=== PATIENT | male | born 1955 | race African-American/Black ===

== ENCOUNTER 2018-06-14 16:03 | Emergency (ER) | payer BC ==
[2018-06-14 16:45] LABS: Absolute Lymphocytes (CBC) 1.2 K/uL (0.7-4.9); Absolute Monocytes 0.7 K/uL (0.1-1.3); Absolute Neutrophil 3.2 K/uL (1.8-8.0); Basophils % 0.7 % (0-1.3); Eosinophils % 2.9 % (0-4.4); Hematocrit 51.5 % (39.6-49.0); Lymphocytes % 22.6 % (15.3-44.8); MPV 8.5 fL (7.6-11.3); Monocytes % 13.1 % (3.3-12.3); RBC Red Blood Cell Count 5.34 M/uL (4.33-5.43)
[2018-06-14] MEDS ORDERED: NA CHLORIDE 0.9% 1,000 ML ONE (16:53)
[2018-06-14 17:05] LABS: Albumin 3.9 g/dL (3.4-5.0); Bilirubin Direct 0.2 mg/dL (0-0.2); Potassium 4.8 mmol/L (3.5-5.1); Protein, Total 7.8 g/dL (6.4-8.2)
--- NOTE | 2018-06-14 18:10 | RAD REPORT ---
EXAM DESCRIPTION: CT - Abdomen Pelvis W Contrast - 06/14/2018 5:45 pm CLINICAL HISTORY: Abdominal pain COMPARISON: none. TECHNIQUE: Computed axial tomography of the abdomen pelvis was obtained. 100 cc Isovue-300 was admin istered intravenously. Oral contrast was not requested which limits evaluation of bowel. All CT scans are performed using dose optimization technique as appropriate and may include automated exposure control or mA/KV adjustment according to patient size. FINDINGS: The liver, spleen, pancreas, adrenal and kidneys appear unremarkable. There is no evidence of diverticulitis. The appendix is normal Spondylosis involves lumbar spine resulting in spinal stenosis The prostate gland is markedly enlarged. Air is present within the bladder Small umbilical hernia IMPRESSION: Marked prostatic hypertrophy Air within the bladder. If the patient has had recent instrumentation this is normal. If not this may indicate infection.
[2018-06-14 18:21] LABS: Urine Blood NEGATIVE (NEG); Urine Glucose NEGATIVE (NEG); Urine Protein NEGATIVE (NEG); Urine pH 5.5 (5.0-7.0)
--- NOTE | 2018-06-14 18:32 | EDPHYS ---
Physician Documentation [facility] Name: Scot Suazo Jr Age: 63 yrs Sex: Male : 1955 Arrival Date: 06/14/2018 Time: 16:07 Bed 19 Private MD: Oliverio Miller T ED Physician Isaiah Riggs HPI: 06/14 16:34 This 63 yrs old Black Male presents to ER via Ambulatory with complaints of Abdominal pm1 Pain. 16:34 The patient presents with abdominal pain that is diffuse. Onset: The symptoms/episode pm1 began/occurred 4 day(s) ago. The symptoms do not radiate. Associated signs and symptoms: Pertinent positives: constipation, Pertinent negatives: nausea, vomiting, and diarrhea, chest pain, dysuria, fever, shortness of breath. The symptoms are described as crampy. Modifying factors: The symptoms are alleviated by nothing, the symptoms are aggravated by nothing. Severity of pain: in the emergency department the pain is unchanged. The patient has experienced similar episodes in the past, a few times. The patient has been recently seen by a physician: Dr. Steen. Patient has a TURP scheduled next week. Presents with abdominal pain and constipation for the past 4 days. Patient with normal bowel movement this AM. Historical: - Allergies: 16:14 No Known Allergies; la1 - Home Meds: 16:14 lisinopril 20 mg Oral tab 1 tab once daily [Active]; metoprolol tartrate 100 mg Oral la1 tab 1 tab once daily [Active]; montelukast 10 mg oral tab 1 tab once daily [Active]; finasteride 5 mg oral tab 1 tab once daily [Active]; - PMHx: 16:14 Hypertension; la1 - PSHx: 16:14 None; la1 - Immunization history:: Adult Immunizations up to date. - Social history:: Smoking status: Patient/guardian denies using tobacco. - Ebola Screening: : No symptoms or risks identified at this time. ROS: 16:34 Constitutional: Negative for fever, chills, and weight loss, Eyes: Negative for injury, pm1 pain, redness, and discharge, ENT: Negative for injury, pain, and discharge, Neck: Negative for injury, pain, and swelling, Cardiovascular: Negative for chest pain, palpitations, and edema, Respiratory: Negative for shortness of breath, cough, wheezing, and pleuritic chest pain. 16:34 Back: Negative for injury and pain, : Negative for injury, bleeding, discharge, and swelling, MS/Extremity: Negative for injury and deformity, Skin: Negative for injury, rash, and discoloration, Neuro: Negative for headache, weakness, numbness, tingling, and seizure. 16:34 Abdomen/GI: Positive for abdominal pain, constipation, Negative for nausea, vomiting, and diarrhea. Exam: 16:34 Constitutional: This is a well developed, well nourished patient who is awake, alert, pm1 and in no acute distress. Head/Face: Normocephalic, atraumatic. Eyes: Pupils equal round and reactive to light, extra-ocular motions intact. Lids and lashes normal. Conjunctiva and sclera are non-icteric and not injected. Cornea within normal limits. Periorbital areas with no swelling, redness, or edema. ENT: Nares patent. No nasal discharge, no septal abnormalities noted. Tympanic membranes are normal and external auditory canals are clear. Oropharynx with no redness, swelling, or masses, exudates, or evidence of obstruction, uvula midline. Mucous membranes moist. Neck: Trachea midline, no thyromegaly or masses palpated, and no cervical lymphadenopathy. Supple, full range of motion without nuchal rigidity, or vertebral point tenderness. No Meningismus. Chest/axilla: Normal chest wall appearance and motion. Nontender with no deformity. No lesions are appreciated. Cardiovascular: Regular rate and rhythm with a normal S1 and S2. No gallops, murmurs, or rubs. Normal PMI, no JVD. No pulse deficits. Respiratory: Lungs have equal breath sounds bilaterally, clear to auscultation and percussion. No rales, rhonchi or wheezes noted. No increased work of breathing, no retractions or nasal flaring. 16:34 Back: No spinal tenderness. No costovertebral tenderness. Full range of motion. Skin: Warm, dry with normal turgor. Normal color with no rashes, no lesions, and no evidence of cellulitis. MS/ Extremity: Pulses equal, no cyanosis. Neurovascular intact. Full, normal range of motion. 16:34 Abdomen/GI: Inspection: abdomen appears normal, Bowel sounds: normal, Palpation: abdomen is soft and non-tender, in all quadrants, mass, is not appreciated, rebound tenderness, is not appreciated. 16:34 Neuro: Orientation: is normal, Motor: is normal, moves all fours. Vital Signs: 16:14 BP 179 / 79; Pulse 81; Resp 16; Temp 97.3; Pulse Ox 98% on R/A; Weight 93.44 kg; Height la1 6 ft. 1 in. (185.42 cm); Pain 5/10; 17:28 BP 178 / 86; Pulse 50; Resp 18; Pulse Ox 99% on R/A; em 18:40 BP 164 / 71; Pulse 54; Resp 18; Pulse Ox 99% on R/A; Pain 5/10; em 16:14 Body Mass Index 27.18 (93.44 kg, 185.42 cm) la1 MDM: 16:16 Patient medically screened. pm1 18:30 Data reviewed: vital signs. Data interpreted: Pulse oximetry: on room air is 99 %. pm1 Interpretation: normal. Counseling: I had a detailed discussion with the patient and/or guardian regarding: the historical points, exam findings, and any diagnostic results supporting the discharge/admit diagnosis, lab results, radiology results, the need for outpatient follow up, to return to the emergency department if symptoms worsen or persist or if there are any questions or concerns that arise at home. 06/14 16:22 Order name: Basic Metabolic Panel; Complete Time: 17:10 pm06/14 16:22 Order name: CBC with Diff; Complete Time: 16:52 pm06/14 16:22 Order name: Creatinine for Radiology; Complete Time: 17:04 pm06/14 16:22 Order name: Hepatic Function; Complete Time: 17:10 pm06/14 16:22 Order name: Lipase; Complete Time: 17:10 pm06/14 18:06 Order name: Urine Dipstick--Ancillary (enter results); Complete Time: 18:30 06/14 16:22 Order name: IV Saline Lock; Complete Time: 16:47 pm06/14 16:22 Order name: Labs collected and sent; Complete Time: 16:47 pm06/14 16:22 Order name: Urine Dipstick-Ancillary (obtain specimen); Complete Time: 18:15 pm1 04/27 16:22 Order name: CT Abd/Pelvis - W/Contrast; Complete Time: 18:14 pm1 Administered Medications: 16:46 Drug: NS 0.9% 1000 ml Route: IV; Rate: 1000 ml; Site: right antecubital; em 18:15 Follow up: IV Status: Completed infusion; IV Intake: 1000ml em Disposition: 18:51 Co-signature as Attending Physician, Isaiah Riggs MD. rn Disposition: 06/14/18 18:31 Discharged to Home. Impression: Unspecified abdominal pain, Constipation. - Condition is Stable. - Discharge Instructions: Abdominal Pain, Adult, Constipation, Adult. - Prescriptions for Miralax 17 gram/dose Oral - take 1 packet by ORAL route once daily As needed dilute powder in 8 ounces of water or juice; 7 packet. - Medication Reconciliation Form, Thank You Letter, Antibiotic Education, Prescription Opioid Use form. - Follow up: Emergency Department; When: As needed; Reason: Worsening of condition. Follow up: Private Physician; When: 2 - 3 days; Reason: Recheck today's complaints, Continuance of care, Re-evaluation by your physician. - Problem is new. - Symptoms have improved. Signatures: Dispatcher [employer] EDMS Amrit Almeida, SOA ENGINEER SOA ENGINEER em sIaiah Riggs MD MD rn Attema, Lee, RN RN la1 Jesus Albright NP INFORMATICS ANALYST pm1 Corrections: (The following items were deleted from the chart) 18:46 18:31 06/14/2018 18:31 Discharged to Home. Impression: Unspecified abdominal pain; em Constipation. Condition is Stable. Forms are Medication Reconciliation Form, Thank You Letter, Antibiotic Education, Prescription Opioid Use. Follow up: Emergency Department; When: As needed; Reason: Worsening of condition. Follow up: Private Physician; When: 2 - 3 days; Reason: Recheck today's complaints, Continuance of care, Re-evaluation by your physician. Problem is new. Symptoms have improved. pm1
--- NOTE | 2018-06-14 18:32 | ER ---
Nurse's Notes [facility] Name: Scot Suazo Jr Age: 63 yrs Sex: Male : 1955 Arrival Date: 06/14/2018 Time: 16:07 Bed 19 Private MD: Oliverio Miller T Diagnosis: Unspecified abdominal pain;Constipation Presentation: 06/14 16:11 Presenting complaint: Patient states: Generalized abd pain for the last 4-5 days, la1 constipation with small formed stools. Transition of care: patient was not received from another setting of care. Onset of symptoms was June 14, 2018. Risk Assessment: Do you want to hurt yourself or someone else? Patient reports no desire to harm self or others. Initial Sepsis Screen: Does the patient meet any 2 criteria? No. Patient's initial sepsis screen is negative. Does the patient have a suspected source of infection? No. Patient's initial sepsis screen is negative. Care prior to arrival: None. 16:11 Method Of Arrival: Ambulatory la1 16:11 Acuity: ERYN 3 la1 Historical: - Allergies: 16:14 No Known Allergies; la1 - Home Meds: 16:14 lisinopril 20 mg Oral tab 1 tab once daily [Active]; metoprolol tartrate 100 mg Oral la1 tab 1 tab once daily [Active]; montelukast 10 mg oral tab 1 tab once daily [Active]; finasteride 5 mg oral tab 1 tab once daily [Active]; - PMHx: 16:14 Hypertension; la1 - PSHx: 16:14 None; la1 - Immunization history:: Adult Immunizations up to date. - Social history:: Smoking status: Patient/guardian denies using tobacco. - Ebola Screening: : No symptoms or risks identified at this time. Screenin:24 Abuse screen: Denies threats or abuse. Nutritional screening: No deficits noted. em Tuberculosis screening: No symptoms or risk factors identified. Fall Risk None identified. Assessment: 16:25 General: Appears in no apparent distress. comfortable, Behavior is calm, cooperative. em Pain: Complains of pain in abdomen Pain currently is 5 out of 10 on a pain scale. Neuro: Level of Consciousness is awake, alert, obeys commands, Oriented to person, place, time, situation. Cardiovascular: Capillary refill < 3 seconds Patient's skin is warm and dry. Respiratory: Airway is patent Respiratory effort is even, unlabored, Respiratory pattern is regular, symmetrical. GI: Abdomen is flat, Bowel sounds present X 4 quads. Abd is soft X 4 quads Abdomen is tender to palpation in right lower quadrant and left lower quadrant Patient currently denies nausea, vomiting. Derm: Skin is intact, is healthy with good turgor, Skin is pink, warm \T\ dry. Musculoskeletal: Capillary refill < 3 seconds, Range of motion: intact in all extremities. 17:27 Reassessment: Patient appears in no apparent distress at this time. Patient and/or em family updated on plan of care and expected duration. Pain level reassessed. Patient is alert, oriented x 3, equal unlabored respirations, skin warm/dry/pink. 18:40 Reassessment: Patient appears in no apparent distress at this time. Patient and/or em family updated on plan of care and expected duration. Pain level reassessed. Patient is alert, oriented x 3, equal unlabored respirations, skin warm/dry/pink. Vital Signs: 16:14 BP 179 / 79; Pulse 81; Resp 16; Temp 97.3; Pulse Ox 98% on R/A; Weight 93.44 kg; Height la1 6 ft. 1 in. (185.42 cm); Pain 5/10; 17:28 BP 178 / 86; Pulse 50; Resp 18; Pulse Ox 99% on R/A; em 18:40 BP 164 / 71; Pulse 54; Resp 18; Pulse Ox 99% on R/A; Pain 5/10; em 16:14 Body Mass Index 27.18 (93.44 kg, 185.42 cm) la1 ED Course: 16:07 Patient arrived in ED. as 16:08 Oliverio Miller MD is Private Physician. as 16:12 Triage completed. la1 16:14 Arm band placed on left wrist. la1 16:16 Jesus Albright NP is PHCP. pm1 16:16 Isaiah Riggs MD is Attending Physician. pm1 16:24 Patient has correct armband on for positive identification. Bed in low position. Call em light in reach. Side rails up X2. Adult w/ patient. Pulse ox on. NIBP on. 16:25 Amrit Almeida LVN is Primary Nurse. em 16:30 Initial lab(s) drawn, by me, sent to lab. Inserted saline lock: 22 gauge in right em antecubital area, using aseptic technique. Blood collected. 17:42 CT completed. Patient tolerated procedure well. Patient moved back from CT. bq 17:45 CT Abd/Pelvis - W/Contrast In Process Unspecified. EDMS 18:45 No provider procedures requiring assistance completed. IV discontinued, intact, em bleeding controlled, No redness/swelling at site. Pressure dressing applied. Administered Medications: 16:46 Drug: NS 0.9% 1000 ml Route: IV; Rate: 1000 ml; Site: right antecubital; em 18:15 Follow up: IV Status: Completed infusion; IV Intake: 1000ml em Intake: 18:15 IV: 1000ml; Total: 1000ml. em Outcome: 18:31 Discharge ordered by MD. pm1 18:45 Discharged to home ambulatory, with family. em 18:45 Condition: good 18:45 Discharge instructions given to patient, family, Instructed on discharge instructions, follow up and referral plans. medication usage, Demonstrated understanding of instructions, follow-up care, medications, Prescriptions given X 1. 18:46 Patient left the ED. em Signatures: Dispatcher [employer] EDMS Lyly Peraza bq Amrit Almeida, EXHAUSTER ENGINEER EXHAUSTER ENGINEER Nathalie Tsai Lee, RN RN la1 Jesus Albright, TAMMI FUR CUTTER pm1
== END 2018-06-14 18:46 | disposition home or self-care (01) ==
LOC: ER 16:03
DX: K59.00 Constipation, unspecified (principal); I10 Essential (primary) hypertension
CPT/HCPCS: 36415; 74177; 80048; 80076; 81003; 83690; 85025; 96360; 99284; J7030; Q9967

== ENCOUNTER 2020-10-26 13:33 | Emergency (ER) | payer BC ==
[2020-10-26 14:27] LABS: Absolute Lymphocytes (CBC) 0.9 K/uL (0.7-4.9); Basophils % 1.5 % (0-1.3); Hematocrit 48.1 % (39.6-49.0); Lymphocytes % 28.3 % (15.3-44.8); MPV 9.7 fL (7.6-11.3); RBC Red Blood Cell Count 4.98 M/uL (4.33-5.43)
[2020-10-26 14:35] LABS: Protime INR 1.12
[2020-10-26 14:50] LABS: Albumin 3.6 g/dL (3.4-5.0); Bilirubin Direct 0.3 mg/dL (0-0.2); Bilirubin Total 1.5 mg/dL (0.2-1.0); Magnesium 1.7 mg/dL (1.8-2.4); Potassium 3.8 mmol/L (3.5-5.1); Troponin (Emerg Dept Use Only) 0.02 ng/mL (0.0-0.045)
[2020-10-26 14:56] LABS: Blood Morphology Comment NOT SEEN (NOT SEEN); Platelet Estimate ADEQ; White Blood Cell Scan OK (OK)
--- NOTE | 2020-10-26 15:20 | ER ---
Nurse's Notes [facility] Name: Scot Suazo Jr Age: 65 yrs Sex: Male : 1955 Arrival Date: 10/26/2020 Time: 13:42 Bed 16 Private MD: Diagnosis: Hypertensive urgency Presentation: 10/26 14:04 Chief complaint: Patient states: Elevated Blood pressure x1 day. Recently saw Dr. Miller ld1 and was taken off Protonix and HCTZ because of "kidney issues". Coronavirus screen: Vaccine status: Patient reports receiving the 2nd dose of the covid vaccine. Date September 2020 10-20 Media Patient reports receiving the 1st dose of the Covid vaccine. Date August 2020 10-20 Media Client denies travel out of the [place] in the last 14 days. At this time, the client does not indicate any symptoms associated with coronavirus-19. Ebola Screen: Patient negative for fever greater than or equal to 101.5 degrees Fahrenheit, and additional compatible Ebola Virus Disease symptoms Patient denies exposure to infectious person. Patient denies travel to an Ebola-affected area in the 21 days before illness onset. Initial Sepsis Screen: Does the patient meet any 2 criteria? No. Patient's initial sepsis screen is negative. Does the patient have a suspected source of infection? No. Patient's initial sepsis screen is negative. Risk Assessment: Do you want to hurt yourself or someone else? Patient reports no desire to harm self or others. Onset of symptoms was September 25, 2020. 14:04 Method Of Arrival: EMS: [facility] ld1 14:04 Acuity: ERYN 3 ld1 Triage Assessment: 14:15 General: Appears in no apparent distress. Behavior is calm, cooperative, appropriate ld1 for age, quiet. Pain: Complains of pain in Head Pain currently is 4 out of 10 on a pain scale. Quality of pain is described as aching. Historical: - Allergies: 14:12 No Known Allergies; ld1 - Home Meds: 14:12 lisinopril 20 mg Oral tab 1 tab once daily [Active]; metoprolol tartrate 100 mg Oral ld1 tab 1 tab once daily [Active]; prazosin Oral [Active]; famotidine Oral [Active]; - PMHx: 14:12 Hypertension; ld1 - PSHx: 14:12 None; ld1 - Immunization history:: Adult Immunizations up to date, Client reports receiving the 2nd dose of the Covid vaccine, Date received: September 2020 10-20 Media Client reports receiving the 1st dose of the Covid vaccine, August 2020 10-20 Media. - Social history:: Smoking status: Patient/guardian denies using tobacco, but has a distant history of tobacco abuse. Screenin:15 Abuse screen: Denies threats or abuse. Denies injuries from another. Nutritional ld1 screening: No deficits noted. Tuberculosis screening: No symptoms or risk factors identified. Fall Risk None identified. Assessment: 15:34 Reassessment: See triage assessment. kg Vital Signs: 14:04 BP 183 / 99; Pulse 50; Resp 14; Temp 96.9(TE); Pulse Ox 98% on R/A; Weight 86.18 kg ld1 (R); Height 6 ft. 0 in. (182.88 cm); Pain 4/10; 14:15 BP 181 / 90; Pulse 50; Resp 18; Pulse Ox 100% ; kg 14:30 BP 172 / 89; Pulse 49; Resp 20; Pulse Ox 100% ; kg 14:45 BP 185 / 93; Pulse 48; Resp 17; Pulse Ox 98% ; kg 15:00 BP 170 / 88; Pulse 46; Resp 16; Pulse Ox 100% ; kg 15:30 BP 186 / 92; Pulse 48; Resp 20; Pulse Ox 100% ; kg 14:04 Body Mass Index 25.77 (86.18 kg, 182.88 cm) ld1 ED Course: 13:42 Patient arrived in ED. bd 13:53 Emeka Viveros MD is Attending Physician. sp3 14:01 Adriana English, NITZA is Primary Nurse. kg 14:12 Triage completed. ld1 14:15 No apparent distress. ld1 14:15 Patient has correct armband on for positive identification. Placed in gown. Bed in low ld1 position. Call light in reach. Side rails up X2. 14:15 No provider procedures requiring assistance completed. Inserted saline lock: 20 gauge ld1 in left antecubital area, using aseptic technique. 15:32 XRAY Chest (1 view) In Process Unspecified. EDMS 15:35 IV discontinued, intact, bleeding controlled, No redness/swelling at site. Pressure kg dressing applied. Administered Medications: No medications were administered Outcome: 15:19 Discharge ordered by sp3 15:35 Discharged to home ambulatory. kg 15:35 Discharged to home ambulatory. 15:35 Discharged to home ambulatory. 15:35 Condition: stable 15:35 Discharge instructions given to patient, significant other, Instructed on discharge instructions, follow up and referral plans. Demonstrated understanding of instructions, follow-up care. 15:37 Patient left the ED. kg Signatures: Dispatcher [employer] EDMS Santa Armando Lauren, RN RN ld1 Adriana English RN RN kg Emeka Viveros MD MD sp3 Corrections: (The following items were deleted from the chart) 15:34 14:00 BP 181 / 90; Pulse 50bpm; Resp 18bpm; Pulse Ox 100%; kg kg
--- NOTE | 2020-10-26 15:20 | EDPHYS ---
Physician Documentation [facility] Name: Scot Suazo Jr Age: 65 yrs Sex: Male : 1955 Arrival Date: 10/26/2020 Time: 13:42 Bed 16 Private MD: ED Physician Emeka Viveros HPI: 10/26 15:12 This 65 yrs old Black Male presents to ER via EMS with complaints of High Blood sp3 Pressure. 15:12 65-year-old male with history of hypertension presents with elevated blood pressure and sp3 mild lightheadedness which is now resolved. Patient since getting the second COVID-19 vaccine has had mild renal insufficiency for which his physician was changing his blood pressure regimen. It on prior to arrival it was 210 systolic. Her blood pressures been between 170 and 180 systolic over 90. Patient states that his lightheadedness symptoms have since resolved he denies headache, neck pain, chest pain, shortness of breath, fever, nausea, vomiting, diarrhea, abdominal pain, syncope, or any other symptoms at this time.. Historical: - Allergies: 14:12 No Known Allergies; ld1 - Home Meds: 14:12 lisinopril 20 mg Oral tab 1 tab once daily [Active]; metoprolol tartrate 100 mg Oral ld1 tab 1 tab once daily [Active]; prazosin Oral [Active]; famotidine Oral [Active]; - PMHx: 14:12 Hypertension; ld1 - PSHx: 14:12 None; ld1 - Immunization history:: Adult Immunizations up to date, Client reports receiving the 2nd dose of the Covid vaccine, Date received: September 2020 [employer] Client reports receiving the 1st dose of the Covid vaccine, August 2020 [employer]. - Social history:: Smoking status: Patient/guardian denies using tobacco, but has a distant history of tobacco abuse. ROS: 15:14 Constitutional: Negative for fever, chills, and weight loss, Eyes: Negative for injury, sp3 pain, redness, and discharge, Neck: Negative for injury, pain, and swelling, Cardiovascular: Negative for chest pain, palpitations, and edema, Respiratory: Negative for shortness of breath, cough, wheezing, and pleuritic chest pain, Abdomen/GI: Negative for abdominal pain, nausea, vomiting, diarrhea, and constipation, Back: Negative for injury and pain, MS/Extremity: Negative for injury and deformity, Skin: Negative for injury, rash, and discoloration, Allergy/Immunology: Negative for hives, rash, and allergies, Endocrine: Negative for neck swelling, polydipsia, polyuria, polyphagia, and marked weight changes. 15:14 Neuro: Positive for Patient had mild lightheadedness which is subsequently resolved., Negative for altered mental status, headache, hearing loss, seizure activity, speech changes, syncope, visual changes, weakness, acute changes. 15:15 All other systems are negative. sp3 Exam: 15:15 Constitutional: This is a well developed, well nourished patient who is awake, alert, sp3 and in no acute distress. Head/Face: Normocephalic, atraumatic. ENT: Nares patent. No nasal discharge, no septal abnormalities noted. External auditory canals are clear. Oropharynx with no redness, swelling, or masses, exudates, or evidence of obstruction, uvula midline. Mucous membranes moist. Neck: Trachea midline, no thyromegaly or masses palpated, and no cervical lymphadenopathy. Supple, full range of motion without nuchal rigidity, or vertebral point tenderness. No Meningismus. Chest/axilla: Normal chest wall appearance and motion. Nontender with no deformity. No lesions are appreciated. Cardiovascular: Regular rate and rhythm with a normal S1 and S2. No gallops, murmurs, or rubs. Normal PMI, no JVD. No pulse deficits. Respiratory: Lungs have equal breath sounds bilaterally, clear to auscultation and percussion. No rales, rhonchi or wheezes noted. No increased work of breathing, no retractions or nasal flaring. Abdomen/GI: Soft, non-tender, with normal bowel sounds. No distension or tympany. No guarding or rebound. No evidence of tenderness throughout. Back: No spinal tenderness. No costovertebral tenderness. Full range of motion. Skin: Warm, dry with normal turgor. Normal color with no rashes, no lesions, and no evidence of cellulitis. MS/ Extremity: Pulses equal, no cyanosis. Neurovascular intact. Full, normal range of motion. Neuro: Awake and alert, GCS 15, oriented to person, place, time, and situation. Cranial nerves II-XII grossly intact. Motor strength 5/5 in all extremities. Sensory grossly intact. Cerebellar exam normal. Normal gait. Psych: Awake, alert, with orientation to person, place and time. Behavior, mood, and affect are within normal limits. 15:16 ECG was reviewed by the Attending Physician. LevelsEKG demonstrates normal sinus rhythm sp3 at 60 bpm with, normal QRS, normal axis, nonspecific ST/T changes inferiorly with an inverted T wave in lead III which is unknown in age. No acute STEMI criteria are noted. Vital Signs: 14:04 BP 183 / 99; Pulse 50; Resp 14; Temp 96.9(TE); Pulse Ox 98% on R/A; Weight 86.18 kg ld1 (R); Height 6 ft. 0 in. (182.88 cm); Pain 4/10; 14:15 BP 181 / 90; Pulse 50; Resp 18; Pulse Ox 100% ; kg 14:30 BP 172 / 89; Pulse 49; Resp 20; Pulse Ox 100% ; kg 14:45 BP 185 / 93; Pulse 48; Resp 17; Pulse Ox 98% ; kg 15:00 BP 170 / 88; Pulse 46; Resp 16; Pulse Ox 100% ; kg 15:30 BP 186 / 92; Pulse 48; Resp 20; Pulse Ox 100% ; kg 14:04 Body Mass Index 25.77 (86.18 kg, 182.88 cm) ld1 MDM: 14:28 Patient medically screened. sp3 15:16 Data reviewed: vital signs, nurses notes, radiologic studies. sp3 15:16 ED course: Patient has no evidence of end organ damage and his creatinine is 1.3 which sp3 is his baseline from last week. Troponin is negative. Patient has no neuro symptoms. EKG demonstrates no ischemia patterns. At this time will discharge with no change in medications despite his blood pressure being mildly elevated. I have told him to follow-up with his primary care physician will continue to manage his symptoms.. 10/26 14:02 Order name: Basic Metabolic Panel; Complete Time: 15:06 kg 10/26 14:02 Order name: CBC with Diff; Complete Time: 15: kg 10/26 14:02 Order name: LFT's; Complete Time: 15:06 kg 10/26 14:02 Order name: Magnesium; Complete Time: 15: kg 10/26 14:02 Order name: NT PRO-BNP; Complete Time: 15:06 kg 10/26 14:02 Order name: PT-INR; Complete Time: 15:06 kg 10/26 14:02 Order name: Troponin (emerg Dept Use Only); Complete Time: 15:06 kg 10/26 14:02 Order name: XRAY Chest (1 view) kg 10/26 14:02 Order name: EKG; Complete Time: 14:02 kg 10/26 14:02 Order name: Cardiac monitoring; Complete Time: 14:02 kg 10/26 14:02 Order name: EKG - Nurse/Tech; Complete Time: 14:02 kg 10/26 14:02 Order name: IV Saline Lock; Complete Time: 14:02 kg 10/26 14:02 Order name: Labs collected and sent; Complete Time: 14:02 kg 10/26 14:56 Order name: CBC Smear Scan; Complete Time: 15:06 EDMS 10/26 14:02 Order name: O2 Per Protocol; Complete Time: 14:02 kg 10/26 14:02 Order name: O2 Sat Monitoring; Complete Time: 14:02 kg Administered Medications: No medications were administered Disposition Summary: 10/26/20 15:19 Discharge Ordered Location: Home sp3 Condition: Stable sp3 Diagnosis - Hypertensive urgency sp3 Followup: sp3 - With: Private Physician - When: Upon discharge from the Emergency Department - Reason: Re-evaluation by your physician Discharge Instructions: - Discharge Summary Sheet sp3 - Hypertension, Adult sp3 Forms: - Medication Reconciliation Form sp3 - Thank You Letter sp3 - Antibiotic Education sp3 - Prescription Opioid Use sp3 Signatures: Dispatcher [employer] Bibiana Thornton RN RN ld1 Adriana English RN RN kg Emeka Viveros MD MD sp3
--- NOTE | 2020-10-26 15:40 | RAD REPORT ---
EXAM DESCRIPTION: RAD - Chest Single View - 10/26/2020 3:32 pm CLINICAL HISTORY: High Blood pressure COMPARISON: No comparisons FINDINGS: Lines: None. Lungs: Prominence of the pulmonary vasculature. Pleural: No significant pleural effusions or pneumothorax. Cardiac: Cardiomegaly. Bones: No acute fractures. Other: IMPRESSION: Question vascular congestion but no elizabeth pulmonary edema or evidence of pneumonia.
[2020-10-26 15:47] VITALS: TEMP 96.9
[2020-10-26 15:52] VITALS: O2SAT 100
[2020-10-26 15:54] VITALS: BP 186/92
== END 2020-10-26 15:37 | disposition home or self-care (01) ==
LOC: ER 13:33
DX: I16.0 Hypertensive urgency (principal)
CPT/HCPCS: 36415; 71045; 80048; 80076; 83735; 83880; 84484; 85025; 85610; 93005; 99284

== ENCOUNTER 2020-10-27 12:59 | Observation (INO) | payer BC, OTHER ==
[2020-10-27] MEDS ORDERED: MECLIZINE HCL 12.5 MG TAB ONE (16:29)
[2020-10-27] MEDS ORDERED: cloNIDine HCL 0.1 MG TAB ONE (17:20)
[2020-10-27] MEDS ORDERED: lisinopriL 20 MG TAB ONE (17:51)
[2020-10-27] MEDS ORDERED: LORAZEPAM 1 MG TABLET ONE (18:22)
[2020-10-27] MEDS ORDERED: LORazepam 2 MG/ML VIAL ONE (18:41)
--- NOTE | 2020-10-27 21:00 | RAD REPORT ---
EXAM DESCRIPTION: MRI - MRA Head Wo Cont - 10/27/2020 8:54 pm CLINICAL HISTORY: DIZZINESS COMPARISON: No comparisons FINDINGS: The internal carotid arteries, middle cerebral artery, anterior cerebral artery is, and po sterior cerebral arteries are patent. Bilateral type posterior cerebral arteries. No occlusion or aneurysm. The vertebral arteries are codominant. IMPRESSION: No flow limiting stenosis, aneurysm, or occlusion involving the coquille Mcdonald.
--- NOTE | 2020-10-27 21:24 | RAD REPORT ---
EXAM DESCRIPTION: MRI - MRA Neck W/Wo Cont - 10/27/2020 8:54 pm CLINICAL HISTORY: DIZZINESS COMPARISON: No comparisons FINDINGS: Both carotid systems are widely patent. This includes the common carotid arteries, externa l carotid arteries, and internal carotid arteries bilaterally. The left vertebral artery is patent. T he origin of the right vertebral artery is not well visualized but this is favored due to artifact. T wo vessel arch. IMPRESSION: No definite stenosis or dissection identified. Excluding the right proximal vertebral ar roxann which is nonvisualized probably due to artifact, the remaining vessels are widely patent
--- NOTE | 2020-10-27 21:47 | EDPHYS ---
Physician Documentation [facility] Name: Scot Suazo Jr Age: 65 yrs Sex: Male : 1955 Arrival Date: 10/27/2020 Time: 13:01 Bed 13 Private MD: Oliverio Miller T ED Physician Axel Day HPI: 10/27 21:39 This 65 yrs old Black Male presents to ER via Ambulatory with complaints of Dizziness. caridad 21:39 The patient presents with dizziness, generalized weakness, a sense of confusion. Onset: caridad The symptoms/episode began/occurred 2 day(s) ago. Context: occurred at home. Modifying factors: The symptoms are alleviated by lying down, the symptoms are aggravated by movement of head. Associated signs and symptoms: The patient has no apparent associated signs or symptoms. Severity of symptoms: At their worst the symptoms were moderate this morning. Patient's baseline: Neuro: alert and fully oriented. The patient has experienced a previous episode, yesterday. Historical: - Allergies: 13:37 No Known Allergies; tw2 - Home Meds: 13:37 Prazosin Oral [Active]; Famotidine Oral [Active]; lisinopril 20 mg Oral tab 1 tab once tw2 daily [Active]; finasteride 5 mg Oral tab 1 tab once daily [Active]; metoprolol tartrate 100 mg Oral tab 1 tab once daily [Active]; montelukast 10 mg Oral tab 1 tab once daily [Active]; - PMHx: 13:37 Hypertension; tw2 - Immunization history:: Adult Immunizations. - Social history:: Smoking status: . - Family history:: not pertinent. ROS: 21:39 Constitutional: Negative for fever, chills, and weight loss, Eyes: Negative for injury, caridad pain, redness, and discharge, ENT: Negative for injury, pain, and discharge, Neck: Negative for injury, pain, and swelling, Cardiovascular: Negative for chest pain, palpitations, and edema, Respiratory: Negative for shortness of breath, cough, wheezing, and pleuritic chest pain, Abdomen/GI: Negative for abdominal pain, nausea, vomiting, diarrhea, and constipation, Back: Negative for injury and pain, : Negative for injury, bleeding, discharge, and swelling, MS/Extremity: Negative for injury and deformity, Skin: Negative for injury, rash, and discoloration, Psych: Negative for depression, anxiety, suicide ideation, homicidal ideation, and hallucinations, Allergy/Immunology: Negative for hives, rash, and allergies, Endocrine: Negative for neck swelling, polydipsia, polyuria, polyphagia, and marked weight changes, Hematologic/Lymphatic: Negative for swollen nodes, abnormal bleeding, and unusual bruising. 21:39 Neuro: Positive for dizziness. Exam: 21:39 Constitutional: This is a well developed, well nourished patient who is awake, alert, caridad and in no acute distress. Head/Face: Normocephalic, atraumatic. Eyes: Pupils equal round and reactive to light, extra-ocular motions intact. Lids and lashes normal. Conjunctiva and sclera are non-icteric and not injected. Cornea within normal limits. Periorbital areas with no swelling, redness, or edema. ENT: Nares patent. No nasal discharge, no septal abnormalities noted. Tympanic membranes are normal and external auditory canals are clear. Oropharynx with no redness, swelling, or masses, exudates, or evidence of obstruction, uvula midline. Mucous membranes moist. Neck: Trachea midline, no thyromegaly or masses palpated, and no cervical lymphadenopathy. Supple, full range of motion without nuchal rigidity, or vertebral point tenderness. No Meningismus. Chest/axilla: Normal chest wall appearance and motion. Nontender with no deformity. No lesions are appreciated. Cardiovascular: Regular rate and rhythm with a normal S1 and S2. No gallops, murmurs, or rubs. Normal PMI, no JVD. No pulse deficits. Respiratory: Lungs have equal breath sounds bilaterally, clear to auscultation and percussion. No rales, rhonchi or wheezes noted. No increased work of breathing, no retractions or nasal flaring. Abdomen/GI: Soft, non-tender, with normal bowel sounds. No distension or tympany. No guarding or rebound. No evidence of tenderness throughout. Back: No spinal tenderness. No costovertebral tenderness. Full range of motion. Male : Normal genitalia with no discharge or lesions. Skin: Warm, dry with normal turgor. Normal color with no rashes, no lesions, and no evidence of cellulitis. MS/ Extremity: Pulses equal, no cyanosis. Neurovascular intact. Full, normal range of motion. Neuro: Awake and alert, GCS 15, oriented to person, place, time, and situation. Cranial nerves II-XII grossly intact. Motor strength 5/5 in all extremities. Sensory grossly intact. Cerebellar exam normal. Normal gait. Psych: Awake, alert, with orientation to person, place and time. Behavior, mood, and affect are within normal limits. 21:44 ECG was reviewed by the Attending Physician. [facility] Vital Signs: 13:38 BP 172 / 75; Pulse 54; Resp 17; Temp 97.9(TE); Pulse Ox 98% on R/A; Weight 95.25 kg tw2 (R); Height 6 ft. 1 in. (185.42 cm); 14:12 BP 158 / 73; Pulse 46; Resp 17; Pulse Ox 100% on R/A; ld1 16:01 BP 156 / 70; Pulse 49; Resp 18; Pulse Ox 100% on R/A; ld1 16:52 BP 182 / 94; Pulse 51; Resp 18; Pulse Ox 98% on R/A; ld1 17:28 BP 197 / 99; Pulse 51; Resp 18; Pulse Ox 99% on R/A; ld1 18:48 BP 129 / 73; Pulse 56; Resp 18; Pulse Ox 100% on R/A; ld1 13:38 Body Mass Index 27.71 (95.25 kg, 185.42 cm) tw2 MDM: 21:22 Patient medically screened. caridad 21:43 Differential diagnosis: cardiac arrhythmia, CVA, generalized weakness, idiopathic caridad dizziness, near-syncope, TIA, vertigo. Data reviewed: vital signs, nurses notes, lab test result(s), EKG, radiologic studies, CT scan, MRI. Data interpreted: wide area network engineer: rate is 56 beats/min, Pulse oximetry: on room air is 100 %. Test interpretation: by ED physician or midlevel provider: ECG, plain radiologic studies. Counseling: I had a detailed discussion with the patient and/or guardian regarding: the historical points, exam findings, and any diagnostic results supporting the discharge/admit diagnosis, lab results, radiology results, the need for further work-up and treatment in the hospital. 10/27 21:33 Order name: Basic Metabolic Panel [facility] 10/27 21:33 Order name: CBC with Diff [facility] 10/27 20:33 Order name: LFT's [facility] 10/27 21:33 Order name: Magnesium; Complete Time: 23:04 [facility] 10/27 21:33 Order name: NT PRO-BNP; Complete Time: 23:04 [facility] 10/27 21:33 Order name: PT-INR; Complete Time: 23:04 [facility] 10/27 21:33 Order name: Troponin (emerg Dept Use Only); Complete Time: 23:04 [facility] 10/27 21:34 Order name: Basic Metabolic Panel; Complete Time: 23:04 [facility] 10/27 21:34 Order name: CBC with Automated Diff; Complete Time: 23:04 [facility] 10/27 21:34 Order name: Liver (Hepatic) Function; Complete Time: 23:04 [facility] 10/28 00:27 Order name: SARS-COV-2 RT PCR [facility] 10/28 04:08 Order name: Troponin I [facility] 10/28 04:08 Order name: T4 Free [facility] 10/27 20:13 Order name: MRA Head Wo Cont; Complete Time: 21:34 [facility] 10/27 20:15 Order name: MRA Neck W/Wo Cont; Complete Time: 21:34 [facility] 10/27 20:15 Order name: Brain W/Wo Cont; Complete Time: 23:04 [facility] 10/27 21:33 Order name: XRAY Chest (1 view); Complete Time: 23:04 [facility] 10/27 21:33 Order name: EKG; Complete Time: 21:34 [facility] 10/28 04:08 Order name: Thyroid Stimulating Hormone [facility] 10/28 07:54 Order name: Troponin I [facility] 10/27 21:33 Order name: Cardiac monitoring; Complete Time: 22:17 [facility] 10/27 21:33 Order name: EKG - Nurse/Tech; Complete Time: 22:17 [facility] 10/27 21:33 Order name: IV Saline Lock; Complete Time: 22:17 [facility] 10/27 21:33 Order name: Labs collected and sent; Complete Time: 22:17 [facility] 10/27 21:33 Order name: O2 Per Protocol; Complete Time: 22:17 [facility] 10/27 21:33 Order name: O2 Sat Monitoring; Complete Time: 22:18 [facility] EC:44 Rate is 43 beats/min. Rhythm is regular. QRS Tyro is Normal. LA interval is normal. QRS caridad interval is normal. QT interval is normal. No Q waves. T waves are Normal. No ST changes noted. Clinical impression: Sinus bradycardia. Reviewed by me. Administered Medications: 16:01 Drug: Meclizine 25 mg Route: PO; ld1 16:01 Follow up: Response: No adverse reaction ld1 17:00 Drug: cloNIDine 0.2 mg Route: PO; ld1 17:22 Follow up: Response: No adverse reaction ld1 17:29 Drug: Lisinopril 20 mg Route: PO; ld1 17:29 Follow up: Response: No adverse reaction ld1 18:00 Drug: Ativan (LORazepam) 1 mg Route: IVP; Site: right antecubital; ld1 19:46 Follow up: Response: No adverse reaction ld1 19:46 Not Given (Physician Discretion): Valium (diazepam) 5 mg PO once ld1 22:17 Drug: foLIC Acid 1 mg Route: IVPB; Site: right antecubital; ld1 22:18 Follow up: Response: No adverse reaction; IV Status: Completed infusion; IV Intake: [id number] 22:17 Drug: Aspirin Chewable Tablet 324 mg Route: PO; ld1 22:18 Follow up: Response: No adverse reaction ld1 23:11 Drug: Hydrochlorothiazide 25 mg Route: PO; ld1 23:11 Follow up: Response: No adverse reaction ld1 Disposition Summary: 10/27/20 21:46 Hospitalization Ordered Hospitalization Status: Observation caridad Provider: New Sosa caridad Condition: Stable caridad Problem: new caridad Symptoms: have improved caridad Bed/Room Type: Standard caridad Location: [facility] ER HOLD(10/28/20 01:39) tl1 Room Assignment: ERHOLD-(10/28/20 01:39) tl1 Diagnosis - Dizziness and giddiness caridad - Weakness caridad - Essential (primary) hypertension caridad - Bradycardia, unspecified caridad Forms: - Medication Reconciliation Form caridad - SBAR form caridad Signatures: Dispatcher [employer] EDAxel Hogue MD MD cha Rittger, Kevin, MD MD kdr Mickail, Joel, PA PA jmm Lasagna, Tonya RN RN tl1 Jennifer Celeste RN RN tw2 Bibiana Amaro RN RN ld1 Corrections: (The following items were deleted from the chart) 20:13 15:50 MR STROKE PROTOCOL+MRI.RAD.BRZ ordered. EDMS EDMS 23:36 23:25 CORONAVIRUS+MR.LAB.BRZ ordered. EDMS [facility] 10/28 01:39 10/27 21:46 Telemetry/MedSurg (observation) [place] [id number] 10/28 01:39 10/27 21:46 [place] [id number]
--- NOTE | 2020-10-27 21:47 | ER ---
Nurse's Notes [facility] Name: Scot Sauzo Jr Age: 65 yrs Sex: Male : 1955 Arrival Date: 10/27/2020 Time: 13:01 Bed 13 Private MD: Oliverio Miller T Diagnosis: Dizziness and giddiness;Weakness;Essential (primary) hypertension;Bradycardia, unspecified Presentation: 10/27 13:35 Chief complaint: Spouse and/or significant other states: his blood pressure. we rushed tw2 out here yesterday because it was high and he was disoriented. and they checked him out and then this morning he took his high blood pressure pill then all of a sudden started feeling nauseous while he was eating. i just dont want to take any more chances. Coronavirus screen: headache, nausea, Client presents with at least one sign or symptom that may indicate coronavirus-19. Standard/surgical mask placed on the client. Provider contacted for isolation considerations. Ebola Screen: Patient denies travel to an Ebola-affected area in the 21 days before illness onset. Risk Assessment: Do you want to hurt yourself or someone else? Patient reports no desire to harm self or others. Onset of symptoms was October 27, 2020. 13:35 Method Of Arrival: Ambulatory tw2 13:40 Initial Sepsis Screen: Does the patient meet any 2 criteria? No. Patient's initial tw2 sepsis screen is negative. Does the patient have a suspected source of infection? No. Patient's initial sepsis screen is negative. 13:40 Acuity: ERYN 3 tw2 Triage Assessment: 13:38 General: Appears in no apparent distress. well groomed, Behavior is calm, cooperative, tw2 appropriate for age. Pain: Denies pain. Neuro: Level of Consciousness is awake, alert, obeys commands, Oriented to person, place, time, situation, Reports dizziness. Historical: - Allergies: 13:37 No Known Allergies; tw2 - Home Meds: 13:37 Prazosin Oral [Active]; Famotidine Oral [Active]; lisinopril 20 mg Oral tab 1 tab once tw2 daily [Active]; finasteride 5 mg Oral tab 1 tab once daily [Active]; metoprolol tartrate 100 mg Oral tab 1 tab once daily [Active]; montelukast 10 mg Oral tab 1 tab once daily [Active]; - PMHx: 13:37 Hypertension; tw2 - Immunization history:: Adult Immunizations. - Social history:: Smoking status: . - Family history:: not pertinent. Screenin:41 Abuse screen: Denies threats or abuse. Nutritional screening: No deficits noted. tw2 Tuberculosis screening: No symptoms or risk factors identified. Fall Risk None identified. Assessment: 14:12 General: Appears in no apparent distress. comfortable, Behavior is calm, cooperative, ld1 appropriate for age. Pain: Denies pain. Neuro: Level of Consciousness is awake, alert, obeys commands, Oriented to person, place, time, situation, Appropriate for age. Neuro: Reports dizziness, since X 1 day. Cardiovascular: Capillary refill < 3 seconds Patient's skin is warm and dry. Respiratory: Airway is patent Respiratory effort is even, unlabored, Respiratory pattern is regular, symmetrical. GI: Abdomen is flat, non-distended. : No signs and/or symptoms were reported regarding the genitourinary system. EENT: No signs and/or symptoms were reported regarding the EENT system. Derm: No signs and/or symptoms reported regarding the dermatologic system. Musculoskeletal: No signs and/or symptoms reported regarding the musculoskeletal system. 16:01 Reassessment: Patient appears in no apparent distress at this time. No changes from ld1 previously documented assessment. Patient and/or family updated on plan of care and expected duration. Pain level reassessed. Patient is alert, oriented x 3, equal unlabored respirations, skin warm/dry/pink. 16:52 Reassessment: Patient appears in no apparent distress at this time. No changes from ld1 previously documented assessment. Patient and/or family updated on plan of care and expected duration. Pain level reassessed. Patient is alert, oriented x 3, equal unlabored respirations, skin warm/dry/pink. 17:28 Reassessment: Notified ERP of VS. See MAR for orders Patient denies pain at this time. ld1 18:48 Reassessment: Patient appears in no apparent distress at this time. No changes from ld1 previously documented assessment. Patient and/or family updated on plan of care and expected duration. Pain level reassessed. Patient is alert, oriented x 3, equal unlabored respirations, skin warm/dry/pink. Patient denies pain at this time. Vital Signs: 13:38 BP 172 / 75; Pulse 54; Resp 17; Temp 97.9(TE); Pulse Ox 98% on R/A; Weight 95.25 kg tw2 (R); Height 6 ft. 1 in. (185.42 cm); 14:12 BP 158 / 73; Pulse 46; Resp 17; Pulse Ox 100% on R/A; ld1 16:01 BP 156 / 70; Pulse 49; Resp 18; Pulse Ox 100% on R/A; ld1 16:52 BP 182 / 94; Pulse 51; Resp 18; Pulse Ox 98% on R/A; ld1 17:28 BP 197 / 99; Pulse 51; Resp 18; Pulse Ox 99% on R/A; ld1 18:48 BP 129 / 73; Pulse 56; Resp 18; Pulse Ox 100% on R/A; ld1 13:38 Body Mass Index 27.71 (95.25 kg, 185.42 cm) tw2 ED Course: 13:01 Patient arrived in ED. am2 13:01 Oliverio Miller MD is Private Physician. am2 13:37 Arm band placed on. tw2 13:41 Triage completed. tw2 14:12 Patient has correct armband on for positive identification. Bed in low position. Call ld1 light in reach. Side rails up X2. Pulse ox on. NIBP on. Door closed. Noise minimized. Warm blanket given. 14:12 No provider procedures requiring assistance completed. ld1 14:54 Tip Arboleda MD is Attending Physician. kdr 16:01 Bibiana Amaro RN is Primary Nurse. ld1 20:54 MRA Head Wo Cont In Process Unspecified. EDMS 20:54 MRA Neck W/Wo Cont In Process Unspecified. EDMS 20:54 Brain W/Wo Cont In Process Unspecified. EDMS 21:22 Attending Physician role handed off by Tip Arboleda MD caridad 21:22 Axel Day MD is Attending Physician. caridad 21:45 New Sosa is Hospitalizing Provider. caridad 21:56 XRAY Chest (1 view) In Process Unspecified. EDMS Administered Medications: 16:01 Drug: Meclizine 25 mg Route: PO; ld1 16:01 Follow up: Response: No adverse reaction ld1 17:00 Drug: cloNIDine 0.2 mg Route: PO; ld1 17:22 Follow up: Response: No adverse reaction ld1 17:29 Drug: Lisinopril 20 mg Route: PO; ld1 17:29 Follow up: Response: No adverse reaction ld1 18:00 Drug: Ativan (LORazepam) 1 mg Route: IVP; Site: right antecubital; ld1 19:46 Follow up: Response: No adverse reaction ld1 19:46 Not Given (Physician Discretion): Valium (diazepam) 5 mg PO once ld1 22:17 Drug: foLIC Acid 1 mg Route: IVPB; Site: right antecubital; ld1 22:18 Follow up: Response: No adverse reaction; IV Status: Completed infusion; IV Intake: [id number] 22:17 Drug: Aspirin Chewable Tablet 324 mg Route: PO; ld1 22:18 Follow up: Response: No adverse reaction ld1 23:11 Drug: Hydrochlorothiazide 25 mg Route: PO; ld1 23:11 Follow up: Response: No adverse reaction ld1 Intake: 22:18 IV: 50ml; Total: 50ml. ld1 Outcome: 21:46 Decision to Hospitalize by Provider. caridad 10/28 22:49 Discharged to pt discharged from [facility] bb 22:50 Patient left the ED. bb Signatures: Dispatcher [employer] Axel Rahman MD MD cha Rittger, Kevin, MD MD kdr Ballard, Brenda RN RN Jennifer Buckley RN RN tw2 Arcelia Astorga Lauren, RN RN ld1
[2020-10-27] MEDS ORDERED: NA CHLORIDE 0.9% 50 ML ONE (22:05)
[2020-10-27] MEDS ORDERED: FOLIC ACID 5 MG/ML VIAL ONE (22:05)
--- NOTE | 2020-10-27 22:05 | RAD REPORT ---
EXAM DESCRIPTION: MRI - Brain W/Wo Cont - 10/27/2020 8:54 pm CLINICAL HISTORY: Dizziness COMPARISON: Same-day head CT TECHNIQUE: Sagittal T1-weighted images were obtained along with PD/heavily T2-weighted and T2-FLAIR images. Axial DWI and ADC mapping sequences were also obtained along with coronal heavily T2-weighted images were obtained. FINDINGS: No acute intracranial hemorrhage. No mass effect or midline shift. No diffusion restrictio n. Flow voids are normal. Moderate chronic small vessel ischemic changes are noted. The paranasal sin uses are well aerated. No mastoid effusion is identified. No abnormal enhancement. IMPRESSION: No acute intracranial abnormality. Specifically, no evidence of acute infarct. No abnorm al enhancement. Moderate chronic small vessel ischemic changes.
--- NOTE | 2020-10-27 22:06 | RAD REPORT ---
EXAM DESCRIPTION: RAD - Chest Single View - 10/27/2020 9:56 pm CLINICAL HISTORY: COUGH COMPARISON: Chest Single View dated 10/26/2020 FINDINGS: Lines: None. Lungs: No evidence of edema or pneumonia. Pleural: No significant pleural effusions or pneumothorax. Cardiac: Mild cardiomegaly. Bones: No acute fractures. Other: IMPRESSION: No acute cardiopulmonary disease.
[2020-10-27 22:26] LABS: Protime INR 1.1
[2020-10-27 22:27] LABS: Hematocrit 49.2 % (39.6-49.0); MPV 9.5 fL (7.6-11.3); RBC Red Blood Cell Count 5.12 M/uL (4.33-5.43)
[2020-10-27 22:28] LABS: Absolute Lymphocytes (CBC) 1.3 K/uL (0.7-4.9); Basophils % 1.1 % (0-1.3); Lymphocytes % 32.6 % (15.3-44.8)
[2020-10-27] MEDS ORDERED: ASPIRIN 81 MG CHEWABLE TABLET ONE (22:29)
[2020-10-27 22:43] LABS: ALT/SGPT 23 U/L (12-78); AST/SGOT 15 U/L (15-37); Albumin 3.6 g/dL (3.4-5.0); Alkaline Phosphatase 67 U/L (45-117); BUN Blood Urea Nitrogen 10 mg/dL (7-18); Bicarbonate 28 mmol/L (21-32); Bilirubin Direct 0.3 mg/dL (0-0.2); Bilirubin Total 1.4 mg/dL (0.2-1.0); Glucose Level 84 mg/dL (74-106); Magnesium 1.9 mg/dL (1.8-2.4); NT PRO-BNP 1521 pg/mL (<125); Potassium 4.1 mmol/L (3.5-5.1); Sodium Level 141 mmol/L (136-145); Troponin (Emerg Dept Use Only) < 0.02 ng/mL (0.0-0.045)
[2020-10-27] MEDS ORDERED: hydroCHLOROthiazide 25 MG TAB ONE (23:33)
--- NOTE | 2020-10-28 01:50 | P.HP ---
Certification for Inpatient Patient admitted to: Observation With expected LOS: <2 Midnights Patient will require the following post-hospital care: None Practitioner: I am a practitioner with admitting privileges, knowledge of patient current condition, hospital course, and medical plan of care. Services: Services provided to patient in accordance with Admission requirements found in Title 42 Section 412.3 of the Code of Federal Regulations Patient History Date of Service: 10/28/20 Primary Care Provider: Paul Reason for admission: hypertensive urgency History of Present Illness: Mr. Suazo is a 65 yo M with HTN and CKD who presents with 3 days of off balance feeling. He says he was eating cereal when he began to feel woozy. He denies dizziness, falls, syncope, headache, nausea, vomiting. He was seen in the ED for similar symptoms yesterday and says he felt better after his BP was under control. His BP was as high as 197/99 and pulse of 51. He takes 100 of metoprolol and 20 of lisinopril. MRI of the brain wnl, CXR wnl. Allergies No Known Allergies Allergy (Unverified 10/27/20 21:36) - Past Medical/Surgical History Diabetic: No -: HTN -: CKD Past Surgical History: Patient denies surgical history - Family History Family History: Reviewed- Non-Contributory - Social History Smoking Status: Never smoker Alcohol use: No CD- Drugs: No Caffeine use: Yes Place of Residence: Home Review of Systems 10-point ROS is otherwise unremarkable Cardiovascular: Light Headedness Physical Examination - Physical Exam General: Alert, In no apparent distress HEENT: Atraumatic, PERRLA, Mucous membr. moist/pink, EOMI, Sclerae nonicteric Neck: Supple, 2+ carotid pulse no bruit, No LAD, Without JVD or thyroid abnormality Respiratory: Diminished Cardiovascular: Normal S1 S2, Irregular heart rate/rhythm (bradycardic) Capillary refill: <2 Seconds Gastrointestinal: Normal bowel sounds, No tenderness Musculoskeletal: No tenderness Integumentary: No rashes Neurological: Normal speech, Normal strength at 5/5 x4 extr, Normal tone, Sensation intact, Cranial nerves 3-12 intact, Normal affect Lymphatics: No axilla or inguinal lymphadenopathy - Studies Laboratory Data (last 24 hrs) 10/27/20 22:09: PT 12.7 H, INR 1.10 10/27/20 22:09: WBC 3.80 L D, Hgb 16.2, Hct 49.2 H, Plt Count 182 10/27/20 22:09: Sodium 141, Potassium 4.1, BUN 10, Creatinine 1.38 H, Glucose 84, Magnesium 1.9, Total Bilirubin 1.4 H, AST 15, ALT 23, Alkaline Phosphatase 67 Assessment and Plan - Problems (Diagnosis) (1) Hypertensive urgency Current Visit: Yes Status: Acute (2) Bradycardia Current Visit: Yes Status: Acute - Plan on telemetry hold metoprolol orthostatic VS in the AM hydralazine PRN for BP control DVT ppx Discharge Plan: Home Plan to discharge in: 24 Hours - Advance Directives Does patient have a Living Will: No Does patient have a Durable POA for Healthcare: No - Code Status/Comfort Care Code Status Assessed: Yes (full code ) Critical Care: No Time Spent Managing Pts Care (In Minutes): 70
[2020-10-28 02:16] VITALS: BMI 29.9
[2020-10-28] MEDS ORDERED: ONDANSETRON 4 MG/2 ML VIAL IV PRN (02:21)
[2020-10-28] MEDS ORDERED: HYDRALAZINE HCL 20 MG/ML VIAL IV PRN (02:21)
[2020-10-28] MEDS ORDERED: ACETAMINOPHEN 500 MG TAB PO PRN (02:21)
[2020-10-28 04:08] LABS: Troponin I < 0.02 ng/mL (0.0-0.045)
[2020-10-28] MEDS ORDERED: ENOXAPARIN 40 MG/0.4 ML SQ SCH (09:00)
[2020-10-28 09:38] VITALS: TEMP 96.8
[2020-10-28] MEDS ORDERED: ENOXAPARIN 40 MG/0.4 ML SQ ONE (09:46)
[2020-10-28] MEDS ORDERED: HYDRALAZINE HCL 10 MG TABLET ONE (09:49)
[2020-10-28] MEDS ORDERED: HYDRALAZINE HCL 20 MG/ML VIAL ONE (09:54)
[2020-10-28 12:22] VITALS: O2SAT 93
[2020-10-28] MEDS ORDERED: lisinopriL 20 MG TAB PO SCH (13:30)
[2020-10-28] MEDS ORDERED: AMLODIPINE 10 MG TAB PO SCH (13:30)
[2020-10-28 15:20] VITALS: BP 147/78
[2020-10-28] MEDS ORDERED: lisinopriL 10 MG TAB ONE (16:27)
--- NOTE | 2020-10-28 17:39 | P.DS ---
Admission Date: 10/28/20 Discharge Date: 10/28/20 Primary Care Provider: Paul Discharge Condition: FAIR Reason for Admission: hypertensive urgency - Problems (1) Vertigo Current Visit: Yes Status: Acute (2) Bradycardia Current Visit: Yes Status: Acute (3) Hypertensive urgency Current Visit: Yes Status: Acute Brief History of Present Illness: 65 yo M with HTN and CKD presented with 3 days of vertigo. He denied falls, syncope, headache, nausea, vomiting. He endorsed tinnitus. He was seen in the ED for similar symptoms yesterday and says he felt better after his BP was under control. His BP was as high as 197/99 and pulse of 51 on arrival in the ED this time. He takes 100 of metoprolol and 20 of lisinopril. MRI of the brain wnl, CXR wnl. Patient hospitalized for further evaluation. Hospital Course: Patient placed under observation. Troponin came back negative. MRI a of the brain, MRA of head and neck were all unremarkable. Patient was not orthostatic. His blood pressure was improved during the hospital stay, systolic ranging from 140-150s. Ear examination revealed no wax. Patient seen by PT. He ambulated without difficulty. Given the history of tinnitus patient is given referral to see ENT as an outpatient for further evaluation. His lisinopril and metoprolol are resumed on discharge. Patient stated his blood pressure has been controlled on these medications except the last few days. Vital Signs/Physical Exam: Temp Pulse Resp BP Pulse Ox 96.8 F 81 18 147/78 H 100 10/28/20 09:36 10/28/20 15:20 10/28/20 11:08 10/28/20 15:20 10/28/20 15:20 General: Alert, Oriented x3 HEENT: Mucous membr. moist/pink Neck: 2+ carotid pulse no bruit, JVD not distended Respiratory: Clear to auscultation bilaterally, Normal air movement Cardiovascular: Regular rate/rhythm, Normal S1 S2, No murmurs Gastrointestinal: Normal bowel sounds, Soft and benign, Non-distended, No tenderness Musculoskeletal: No swelling, No tenderness Integumentary: No rashes, No erythema Neurological: Normal gait, Normal speech, Normal strength at 5/5 x4 extr, Cranial nerves 3-12 intact, Normal reflexes 2+ Laboratory Data at Discharge: WBC 3.80 K/uL (4.3-10.9) L D 10/27/20 22:09 Hgb 16.2 g/dL (13.6-17.9) 10/27/20 22:09 Hct 49.2 % (39.6-49.0) H 10/27/20 22:09 Plt Count 182 K/uL (152-406) 10/27/20 22:09 PT 12.7 SECONDS (9.5-12.5) H 10/27/20 22:09 INR 1.10 10/27/20 22:09 Sodium 141 mmol/L (136-145) 10/27/20 22:09 Potassium 4.1 mmol/L (3.5-5.1) 10/27/20 22:09 BUN 10 mg/dL (7-18) 10/27/20 22:09 Creatinine 1.38 mg/dL (0.55-1.3) H 10/27/20 22:09 Glucose 84 mg/dL (74-106) 10/27/20 22:09 Magnesium 1.9 mg/dL (1.8-2.4) 10/27/20 22:09 Total Bilirubin 1.4 mg/dL (0.2-1.0) H 10/27/20 22:09 AST 15 U/L (15-37) 10/27/20 22:09 ALT 23 U/L (12-78) 10/27/20 22:09 Alkaline Phosphatase 67 U/L (45-117) 10/27/20 22:09 Troponin I < 0.02 ng/mL (0.0-0.045) 10/28/20 07:15 Home Medications: Aspirin [Aspirin EC] 81 mg PO DAILY #30 tablet. 10/28/20 Meclizine HCl 25 mg PO TID #30 tablet 10/28/20 Metoprolol Succinate [Toprol Xl*] 100 mg PO [id number] #30 tab 10/28/20 lisinopriL [Prinivil*] 20 mg PO DAILY #30 tab 10/28/20 New Medications: Aspirin [Aspirin EC] 81 mg PO DAILY #30 tablet. Meclizine HCl 25 mg PO TID #30 tablet lisinopriL [Prinivil*] 20 mg PO DAILY #30 tab Metoprolol Succinate [Toprol Xl*] 100 mg PO [id number] #30 tab Diet: AHA Activity: Fall precautions Followup: Oliverio Miller MD [Primary Care Provider] - Shayy Conrad MD [ACTIVE - CAN ADMIT] - 1-2 Weeks (Please evaluate for intermittent vertigo and tinnitus.)
[2020-10-29] MEDS ORDERED: METOPROLOL XL 100 MG TAB PO SCH (06:00)
== END 2020-10-28 22:06 | disposition home or self-care (01) ==
LOC: ER 12:59 → INTOOBSV 10-28 00:15 → ERHOLD 10-28 00:15
PROVIDERS: ADMIT Internal Medicine; ATTEND Internal Medicine
DX: I16.0 Hypertensive urgency (principal); I12.9 Hypertensive chronic kidney disease with stage 1 through stage 4 chronic kidney disease, or unspecified chronic kidney disease; N18.9 Chronic kidney disease, unspecified; R00.1 Bradycardia, unspecified; R42 Dizziness and giddiness; Z20.822 Contact with and (suspected) exposure to COVID-19
CPT/HCPCS: 93005; 85025; 80048; 36415; 83735; 85610; 80076; 84443; 84484 ×3; 84439; 83880; 71045; 70553; 70544; 70549; 97116; 97161; 94760 ×2; 96375; 96374; 99284; U0003; A9577; J0360; J1650; G0378